=== PATIENT | male | born 1985 | race Caucasian/White ===

== ENCOUNTER 2017-04-15 10:27 | Inpatient (IN) | payer OTHER, MEDICAID ==
[2017-04-15] MEDS: SOD CHLORIDE 0.9% 1,000 ML IV ×3 (11:09→22:30)
[2017-04-15 11:30] LABS: ADD MAN DIFF? NO
[2017-04-15 11:32] LABS: BASOPHILS % 0.1 % (0.0-2.0); HEMATOCRIT 34.6 % (42.0-52.0); HEMOGLOBIN 11.9 g/dl (14.0-18.0); LYMPHOCYTES # 1.9 10^3/ul (0.8-2.9); LYMPHOCYTES % 9.1 % (15.0-51.0); MEAN CORPUSCULAR HEMOGLOBIN 31.6 pg (29.0-33.0); MEAN CORPUSCULAR HGB CONC 34.4 g/dl (32.0-37.0); MEAN CORPUSCULAR VOLUME 91.8 fl (82.0-101.0); MEAN PLATELET VOLUME 11.1 fl (7.4-10.4); MONOCYTE # 1.2 10^3/ul (0.3-0.9); MONOCYTES % 5.8 % (0.0-11.0); NEUTROPHIL # 17.9 10^3/ul (1.6-7.5); NEUTROPHILS % 84.4 % (39.0-77.0); PLATELET COUNT 196 10^3/UL (140-415); RED BLOOD COUNT 3.77 10^6/ul (4.70-6.10); RED CELL DISTRIBUTION WIDTH 12.4 % (11.5-14.5)
[2017-04-15 11:32] LABS: WHITE BLOOD COUNT 21.3 10^3/ul (4.8-10.8)
[2017-04-15 11:39] LABS: ADD UMIC YES; UR ASCORBIC ACID NEGATIVE (NEGATIVE); UR BILIRUBIN (Dip) NEGATIVE (NEGATIVE); UR BLOOD (Dip) NEGATIVE (NEGATIVE); UR CLARITY CLEAR (CLEAR); UR COLOR YELLOW (YELLOW); UR GLUCOSE (Dip) 3+ mg/dL (NEGATIVE); UR KETONES (Dip) NEGATIVE (NEGATIVE); UR LEUKOCYTE ESTERASE (Dip) NEGATIVE Leu/ul (NEGATIVE); UR NITRITE (Dip) NEGATIVE (NEGATIVE); UR RBC 4 /HPF (0-5); UR SPECIFIC GRAVITY (Dip) 1.018 (1.003-1.030); UR TOTAL PROTEIN (Dip) 2+ mg/dl (NEGATIVE); UR UROBILINOGEN (Dip) NEGATIVE (NEGATIVE); UR WBC 0 /HPF (0-5)
[2017-04-15] MEDS: INSULIN LISPRO 100 UNIT/ML VIAL SC (11:41)
[2017-04-15] MEDS: ONDANSETRON 4 MG INJ IV ×2 (11:47→13:49)
[2017-04-15] MEDS: HYDROmorphONE 1 MG/ML SYG IV ×3 (11:47→19:49)
[2017-04-15 11:58] LABS: INR 1.03; PARTIAL THROMBOPLASTIN TIME 35.4 Sec (25.0-35.0); PROTIME 13.6 Sec (11.9-14.9); PT RATIO 1.1
[2017-04-15 12:01] LABS: ALANINE AMINOTRANSFERASE 30 IU/L (13-69); ALBUMIN 4.7 g/dl (3.3-4.9); ALBUMIN/GLOBULIN RATIO 1.46; ALKALINE PHOSPHATASE 111 IU/L (42-121); ANION GAP 20 (8-16); ASPARTATE AMINO TRANSFERASE 20 IU/L (15-46); BILIRUBIN,INDIRECT 0.5 mg/dl (0-1.1); BILIRUBIN,TOTAL 0.5 mg/dl (0.2-1.3); BLOOD UREA NITROGEN 19 mg/dl (7-20); CALCIUM 9.7 mg/dl (8.4-10.2); CARBON DIOXIDE 26 mmol/L (21-31); CHLORIDE 94 mmol/L (97-110); CREATININE 0.94 mg/dl (0.61-1.24); GLUCOSE 354 mg/dl (70-220); POTASSIUM 4.5 mmol/L (3.5-5.1); SODIUM 135 mmol/L (135-144); TOTAL PROTEIN 7.9 g/dl (6.1-8.1)
[2017-04-15 12:02] LABS: LACTIC ACID 1.6 mmol/L (0.5-2.0)
[2017-04-15 12:02] LABS: AMPHETAMINE/METHAMPHETAMINE Negative (NEGATIVE); BARBITURATES Negative (NEGATIVE); BENZODIAZEPINES Negative (NEGATIVE); CANNABINOIDS Positive (NEGATIVE); COCAINE Negative (NEGATIVE); OPIATES Negative (NEGATIVE)
[2017-04-15 12:03] LABS: ETHANOL < 10.0 mg/dl
[2017-04-15] MEDS: SODIUM CHLORIDE 0.9% 1L BAG IV* (12:06)
[2017-04-15 12:08] LABS: Arterial Base Excess -0.9 mmol/L (-3.0-3); Arterial Blood Gas Oxygen Sat 70.2 mmHG (95.0-98.0); Arterial COHb 2.1 % (0.0-3.0); Arterial Fraction of Oxyhgb 68.6 % (93.0-99.0); Arterial HCO3 24.1 mmol/L (22.0-26.0); Arterial MetHb 0.2 % (0.0-1.5); Arterial pCO2 41.3 mmhg (35-45); MODE ROOM AIR; Sample Type Blood venous; Site VENOUS LINE
[2017-04-15 12:14] LABS: B-TYPE NATRIURETIC PEPTIDE 482 PG/ML (0-125)
[2017-04-15 12:26] LABS: TROPONIN-I < 0.012 ng/ml (0.00-0.12)
[2017-04-15] MEDS: CEFTRIAXONE 1 GM/50 ML (PMX) 50 ML IVPB (12:41)
[2017-04-15 13:00] LABS: AMYLASE 49 U/L (11-123)
[2017-04-15 13:00] LABS: LIPASE 38 U/L (23-300)
[2017-04-15] MEDS: AZITHROMYCIN 500MG/NS (PMX) 250 ML IV (13:48)
[2017-04-15] MEDS ORDERED: ACETAMINOPHEN 325 MG TAB PO ×2 (15:00→15:30)
[2017-04-15] MEDS ORDERED: ONDANSETRON 4 MG INJ IV (15:00)
[2017-04-15] MEDS ORDERED: METOCLOPRAMIDE 10 MG INJ IV (15:30)
[2017-04-15] MEDS ORDERED: GLUCOSE GEL 15 GRAM TUBE BUCCAL (15:30)
[2017-04-15] MEDS ORDERED: DEXTROSE 50% 50 ML SYRINGE IV ×2 (15:30)
[2017-04-15] MEDS ORDERED: GLUCOSE GEL 15 GRAM TUBE PO ×2 (15:30)
[2017-04-15] MEDS ORDERED: GLUCAGON 1 MG INJ IM (15:30)
[2017-04-15] MEDS ORDERED: NACL 0.9% 3 ML SYG IV (15:30)
[2017-04-15] MEDS ORDERED: MAGNESIUM HYDROXIDE 30ML CUP PO (15:30)
[2017-04-15] MEDS ORDERED: DOCUSATE SODIUM 100 MG CAP PO (15:30)
[2017-04-15 15:39] LABS: HEMOGLOBIN A1C 10.9 % (0-5.9)
[2017-04-15] MEDS: DOXYCYCLINE 100 MG in DEXTROSE 5% 250 ML IV (15:42)
[2017-04-15 16:42] LABS: IRON 11 ug/dl (35-150)
[2017-04-15 16:52] LABS: % IRON SATURATION 5 % SAT (22-52); TOTAL IRON BINDING CAPACITY 233 ug/dl (241-421)
[2017-04-15] MEDS: HYDROmorphONE 0.5 MG/0.5 ML SYG IV ×2 (17:12→22:10)
[2017-04-15] MEDS: INSULIN ASPART [NOVOLOG] 3 ML PEN SC (21:30)
[2017-04-15] MEDS: FAMOTIDINE 20 MG TAB PO (22:39)
[2017-04-15] MEDS: GABAPENTIN 100 MG CAP NGT (22:39)
[2017-04-16] MEDS: HYDROmorphONE 0.5 MG/0.5 ML SYG IV ×6 (02:24→20:59)
[2017-04-16] MEDS: SOD CHLORIDE 0.9% 1,000 ML IV (04:36)
[2017-04-16 05:30] LABS: ADD MAN DIFF? NO
[2017-04-16 05:33] LABS: BASOPHILS % 0.1 % (0.0-2.0); EOSINOPHILS % 0.1 % (0.0-7.0); HEMATOCRIT 29.3 % (42.0-52.0); HEMOGLOBIN 9.8 g/dl (14.0-18.0); LYMPHOCYTES % 12.9 % (15.0-51.0); MEAN CORPUSCULAR HEMOGLOBIN 30.7 pg (29.0-33.0); MEAN CORPUSCULAR HGB CONC 33.4 g/dl (32.0-37.0); MEAN CORPUSCULAR VOLUME 91.8 fl (82.0-101.0); MEAN PLATELET VOLUME 11.2 fl (7.4-10.4); MONOCYTE # 0.8 10^3/ul (0.3-0.9); MONOCYTES % 4.9 % (0.0-11.0); NEUTROPHIL # 12.7 10^3/ul (1.6-7.5); NEUTROPHILS % 81.6 % (39.0-77.0); PLATELET COUNT 164 10^3/UL (140-415); RED BLOOD COUNT 3.19 10^6/ul (4.70-6.10); RED CELL DISTRIBUTION WIDTH 12.2 % (11.5-14.5)
[2017-04-16 05:33] LABS: WHITE BLOOD COUNT 15.6 10^3/ul (4.8-10.8)
[2017-04-16 06:04] LABS: ALBUMIN 3.3 g/dl (3.3-4.9); ANION GAP 15 (8-16); BLOOD UREA NITROGEN 20 mg/dl (7-20); CALCIUM 8.2 mg/dl (8.4-10.2); CARBON DIOXIDE 23 mmol/L (21-31); CHLORIDE 100 mmol/L (97-110); CREATININE 0.71 mg/dl (0.61-1.24); GLUCOSE 174 mg/dl (70-220); MAGNESIUM 1.6 mg/dl (1.7-2.5); PHOSPHORUS 3.6 mg/dl (2.5-4.9); POTASSIUM 4.3 mmol/L (3.5-5.1); SODIUM 134 mmol/L (135-144)
[2017-04-16] MEDS: INSULIN ASPART [NOVOLOG] 3 ML PEN SC ×3 (07:05→17:58)
[2017-04-16] MEDS: INSULIN GLARGINE [LANtus] 3 ML PEN SC ×2 (08:16→21:14)
[2017-04-16] MEDS: GABAPENTIN 100 MG CAP NGT ×2 (08:29→13:12)
[2017-04-16] MEDS: FAMOTIDINE 20 MG TAB PO ×2 (08:29→21:06)
[2017-04-16] MEDS: CEFTRIAXONE 1 GM/50 ML (PMX) 50 ML IVPB (12:48)
[2017-04-16] MEDS: AZITHROMYCIN 500MG/NS (PMX) 250 ML IVPB (14:26)
[2017-04-16] MEDS: MAGNESIUM SULFATE 2 GM/50 ML 50 ML IVPB (15:23)
[2017-04-16] MEDS: ALBUTEROL/IPRATROPIUM (NEB) 3 ML AMP HHN ×2 (15:41→20:08)
[2017-04-16] MEDS: LORAZEPAM 2 MG INJ IV (21:00)
[2017-04-16] MEDS: GABAPENTIN 300 MG CAP PO (21:07)
[2017-04-17] MEDS: HYDROmorphONE 0.5 MG/0.5 ML SYG IV ×3 (03:00→12:30)
[2017-04-17 05:49] LABS: ADD MAN DIFF? NO
[2017-04-17 06:08] LABS: BASOPHILS % 0.1 % (0.0-2.0); EOSINOPHILS % 0.5 % (0.0-7.0); HEMATOCRIT 26.1 % (42.0-52.0); HEMOGLOBIN 8.9 g/dl (14.0-18.0); LYMPHOCYTES % 26.6 % (15.0-51.0); MEAN CORPUSCULAR HEMOGLOBIN 31.2 pg (29.0-33.0); MEAN CORPUSCULAR HGB CONC 34.1 g/dl (32.0-37.0); MEAN CORPUSCULAR VOLUME 91.6 fl (82.0-101.0); MEAN PLATELET VOLUME 10.6 fl (7.4-10.4); MONOCYTE # 0.5 10^3/ul (0.3-0.9); MONOCYTES % 6.1 % (0.0-11.0); NEUTROPHILS % 66.3 % (39.0-77.0); PLATELET COUNT 180 10^3/UL (140-415); RED BLOOD COUNT 2.85 10^6/ul (4.70-6.10); RED CELL DISTRIBUTION WIDTH 12.1 % (11.5-14.5)
[2017-04-17 06:08] LABS: WHITE BLOOD COUNT 7.6 10^3/ul (4.8-10.8)
[2017-04-17 06:50] LABS: ALBUMIN 2.9 g/dl (3.3-4.9); ANION GAP 9 (8-16); BLOOD UREA NITROGEN 19 mg/dl (7-20); CALCIUM 8.5 mg/dl (8.4-10.2); CARBON DIOXIDE 27 mmol/L (21-31); CHLORIDE 102 mmol/L (97-110); CREATININE 0.75 mg/dl (0.61-1.24); GLUCOSE 172 mg/dl (70-220); MAGNESIUM 2.3 mg/dl (1.7-2.5); PHOSPHORUS 3.3 mg/dl (2.5-4.9); POTASSIUM 3.8 mmol/L (3.5-5.1); SODIUM 134 mmol/L (135-144)
[2017-04-17] MEDS: INSULIN ASPART [NOVOLOG] 3 ML PEN SC ×4 (07:05→22:45)
[2017-04-17] MEDS: ALBUTEROL/IPRATROPIUM (NEB) 3 ML AMP HHN ×3 (08:40→19:27)
[2017-04-17] MEDS: FAMOTIDINE 20 MG TAB PO ×2 (09:55→21:05)
[2017-04-17] MEDS: GABAPENTIN 300 MG CAP PO ×3 (09:55→21:05)
[2017-04-17] MEDS ORDERED: HYDROmorphONE 1 MG/ML SYG ×3 (10:05→22:00)
[2017-04-17] MEDS: INFLUENZA VIRUS VACCINE 0.5 ML SYG IM* (12:24)
[2017-04-17] MEDS: CEFTRIAXONE 1 GM/50 ML (PMX) 50 ML IVPB (12:25)
[2017-04-17] MEDS: AZITHROMYCIN 500MG/NS (PMX) 250 ML IVPB (14:35)
[2017-04-17] MEDS: HYDROmorphONE 2 MG TAB PO (17:12)
[2017-04-17] MEDS: INSULIN GLARGINE [LANtus] 3 ML PEN SC (21:00)
[2017-04-17] MEDS: LORAZEPAM 0.5 MG TAB PO (22:03)
[2017-04-17] MEDS ORDERED: morphine 2 MG INJ IV (22:30)
[2017-04-17] MEDS: HYDROmorphONE 2 MG/ML SYG IV (23:00)
[2017-04-18] MEDS: HYDROmorphONE 2 MG/ML SYG IV ×4 (00:32→14:23)
[2017-04-18 05:02] LABS: ADD MAN DIFF? NO
[2017-04-18 05:05] LABS: BASOPHILS % 0.3 % (0.0-2.0); EOSINOPHILS # 0.1 10^3/ul (0.0-0.5); EOSINOPHILS % 1.3 % (0.0-7.0); HEMATOCRIT 30.3 % (42.0-52.0); HEMOGLOBIN 9.9 g/dl (14.0-18.0); LYMPHOCYTES # 1.6 10^3/ul (0.8-2.9); LYMPHOCYTES % 25.5 % (15.0-51.0); MEAN CORPUSCULAR HEMOGLOBIN 30.7 pg (29.0-33.0); MEAN CORPUSCULAR HGB CONC 32.7 g/dl (32.0-37.0); MEAN CORPUSCULAR VOLUME 94.1 fl (82.0-101.0); MEAN PLATELET VOLUME 10.2 fl (7.4-10.4); MONOCYTE # 0.4 10^3/ul (0.3-0.9); MONOCYTES % 6.1 % (0.0-11.0); NEUTROPHIL # 4.2 10^3/ul (1.6-7.5); NEUTROPHILS % 66.6 % (39.0-77.0); PLATELET COUNT 192 10^3/UL (140-415); RED BLOOD COUNT 3.22 10^6/ul (4.70-6.10); RED CELL DISTRIBUTION WIDTH 11.9 % (11.5-14.5)
[2017-04-18 05:05] LABS: WHITE BLOOD COUNT 6.4 10^3/ul (4.8-10.8)
[2017-04-18 05:25] LABS: ALBUMIN 3.4 g/dl (3.3-4.9); ANION GAP 12 (8-16); BLOOD UREA NITROGEN 12 mg/dl (7-20); CARBON DIOXIDE 28 mmol/L (21-31); CHLORIDE 100 mmol/L (97-110); CREATININE 0.75 mg/dl (0.61-1.24); GLUCOSE 206 mg/dl (70-220); MAGNESIUM 1.9 mg/dl (1.7-2.5); PHOSPHORUS 3.2 mg/dl (2.5-4.9); POTASSIUM 4.2 mmol/L (3.5-5.1); SODIUM 136 mmol/L (135-144)
[2017-04-18] MEDS: ALBUTEROL 0.083% (NEB) 2.5 MG/3 ML AMP HHN (08:46)
[2017-04-18] MEDS: ALBUTEROL/IPRATROPIUM (NEB) 3 ML AMP HHN ×2 (08:51→13:53)
[2017-04-18] MEDS: INSULIN ASPART [NOVOLOG] 3 ML PEN SC (09:17)
[2017-04-18] MEDS: GABAPENTIN 300 MG CAP PO ×2 (11:02→14:23)
[2017-04-18] MEDS: FAMOTIDINE 20 MG TAB PO (11:02)
[2017-04-18] MEDS: LEVOFLOXACIN 750MG/D5W (PMX) 150 ML IVPB (12:58)
== END 2017-04-18 18:45 | disposition home or self-care (01) | DRG 871 ==
LOC: MS3 04-18 00:10 → E/R 10:27 → MS3 20:46
DX: A41.9 Sepsis, unspecified organism (principal); J18.9 Pneumonia, unspecified organism; Z94.84 Stem cells transplant status; K31.84 Gastroparesis; E11.43 Type 2 diabetes mellitus with diabetic autonomic (poly)neuropathy; C91.01 Acute lymphoblastic leukemia, in remission; N39.0 Urinary tract infection, site not specified; B95.7 Other staphylococcus as the cause of diseases classified elsewhere; D64.9 Anemia, unspecified; Z89.422 Acquired absence of other left toe(s)
CPT/HCPCS: 36415; 36600; 71045; 80053; 80069; 80306; 80307; 81001; 82150; 82803; 82962; 83036; 83540; 83605; 83690; 83735; 83880; 84484; 85025; 85610; 85730; 87040; 87086; 87400; 90686; 93005; 94640; 94664; 96361; 96365; 96366; 96368; 96372; 96375; 96376; 99285-25

== ENCOUNTER 2017-06-14 10:49 | Emergency (ER) | payer OTHER ==
[2017-06-14] MEDS: IPRATROPIUM (NEB) 0.5 MG/2.5 ML AMP NEB (11:56)
[2017-06-14] MEDS: ALBUTEROL 0.083% (NEB) 2.5 MG/3 ML AMP NEB (11:56)
[2017-06-14 12:11] LABS: ADD MAN DIFF? NO
[2017-06-14] MEDS: SODIUM CHLORIDE 0.9% 1L BAG IV* (12:11)
[2017-06-14 12:20] LABS: WHITE BLOOD COUNT 13.2 10^3/ul (4.8-10.8)
[2017-06-14 12:20] LABS: BASOPHILS % 0.2 % (0.0-2.0); EOSINOPHILS # 0.3 10^3/ul (0.0-0.5); EOSINOPHILS % 1.9 % (0.0-7.0); HEMATOCRIT 29.1 % (42.0-52.0); HEMOGLOBIN 10.1 g/dl (14.0-18.0); LYMPHOCYTES # 1.8 10^3/ul (0.8-2.9); LYMPHOCYTES % 13.9 % (15.0-51.0); MEAN CORPUSCULAR HGB CONC 34.7 g/dl (32.0-37.0); MEAN CORPUSCULAR VOLUME 92.1 fl (82.0-101.0); MONOCYTE # 0.6 10^3/ul (0.3-0.9); MONOCYTES % 4.7 % (0.0-11.0); NEUTROPHIL # 10.4 10^3/ul (1.6-7.5); NEUTROPHILS % 78.8 % (39.0-77.0); PLATELET COUNT 158 10^3/UL (140-415); RED BLOOD COUNT 3.16 10^6/ul (4.70-6.10); RED CELL DISTRIBUTION WIDTH 12.7 % (11.5-14.5)
[2017-06-14 12:54] LABS: ANION GAP 17 (8-16); BLOOD UREA NITROGEN 30 mg/dl (7-20); CALCIUM 9.2 mg/dl (8.4-10.2); CARBON DIOXIDE 25 mmol/L (21-31); CHLORIDE 103 mmol/L (97-110); GLUCOSE 298 mg/dl (70-220); POTASSIUM 5.2 mmol/L (3.5-5.1); SODIUM 140 mmol/L (135-144)
[2017-06-14] MEDS: KETOROLAC 15 MG INJ IV (13:20)
[2017-06-14] MEDS ORDERED: HYDROCODONE/APAP (10/325) TAB PO (14:30)
== END 2017-06-14 14:15 | disposition home or self-care (01) ==
LOC: E/R 10:49
DX: J22 Unspecified acute lower respiratory infection (principal); E11.9 Type 2 diabetes mellitus without complications; R05 Cough; Z94.84 Stem cells transplant status; Z85.6 Personal history of leukemia; Z79.4 Long term (current) use of insulin
CPT/HCPCS: 36415; 71045; 80048; 83605; 85025; 87040; 87400; 94664; 99284-25

== ENCOUNTER 2017-08-15 08:33 | Inpatient (IN) | payer OTHER ==
[2017-08-15] MEDS: ONDANSETRON 4 MG INJ IV ×3 (09:13→15:15)
[2017-08-15] MEDS: HYDROmorphONE 1 MG/5 ML IV SYRINGE IV ×3 (09:13→14:38)
[2017-08-15] MEDS: SOD CHLORIDE 0.9% 1,000 ML IV ×2 (09:13→14:39)
[2017-08-15 09:17] LABS: ADD MAN DIFF? NO
[2017-08-15 09:21] LABS: WHITE BLOOD COUNT 17.4 10^3/ul (4.8-10.8)
[2017-08-15 09:21] LABS: BASOPHILS % 0.2 % (0.0-2.0); EOSINOPHILS # 0.1 10^3/ul (0.0-0.5); EOSINOPHILS % 0.4 % (0.0-7.0); HEMATOCRIT 33.9 % (42.0-52.0); HEMOGLOBIN 11.2 g/dl (14.0-18.0); LYMPHOCYTES % 17.5 % (15.0-51.0); MEAN CORPUSCULAR HEMOGLOBIN 31.1 pg (29.0-33.0); MEAN CORPUSCULAR VOLUME 94.2 fl (82.0-101.0); MEAN PLATELET VOLUME 10.2 fl (7.4-10.4); MONOCYTE # 0.7 10^3/ul (0.3-0.9); MONOCYTES % 3.9 % (0.0-11.0); NEUTROPHIL # 13.5 10^3/ul (1.6-7.5); NEUTROPHILS % 77.5 % (39.0-77.0); PLATELET COUNT 399 10^3/UL (140-415); RED CELL DISTRIBUTION WIDTH 11.7 % (11.5-14.5)
[2017-08-15 09:48] LABS: ALANINE AMINOTRANSFERASE 14 IU/L (13-69); ALBUMIN 4.2 g/dl (3.3-4.9); ALBUMIN/GLOBULIN RATIO 1.13; ALKALINE PHOSPHATASE 107 IU/L (42-121); ANION GAP 22 (8-16); ASPARTATE AMINO TRANSFERASE 11 IU/L (15-46); BILIRUBIN,INDIRECT 0.3 mg/dl (0-1.1); BILIRUBIN,TOTAL 0.3 mg/dl (0.2-1.3); BLOOD UREA NITROGEN 18 mg/dl (7-20); CALCIUM 9.3 mg/dl (8.4-10.2); CARBON DIOXIDE 26 mmol/L (21-31); CHLORIDE 92 mmol/L (97-110); CREATININE 0.87 mg/dl (0.61-1.24); LIPASE 56 U/L (23-300); POTASSIUM 4.6 mmol/L (3.5-5.1); SODIUM 135 mmol/L (135-144); TOTAL PROTEIN 7.9 g/dl (6.1-8.1)
[2017-08-15 09:52] LABS: GLUCOSE 482 mg/dl (70-220)
[2017-08-15 10:29] LABS: ACETONE NEGATIVE (NEGATIVE)
[2017-08-15] MEDS ORDERED: INSULIN LISPRO 100 UNIT/ML VIAL SC (10:30)
[2017-08-15] MEDS ORDERED: DEXTROSE 50% 50 ML SYRINGE IV ×2 (10:30)
[2017-08-15] MEDS ORDERED: GLUCOSE GEL 15 GRAM TUBE BUCCAL (10:30)
[2017-08-15] MEDS ORDERED: GLUCAGON 1 MG INJ IM (10:30)
[2017-08-15] MEDS ORDERED: GLUCOSE GEL 15 GRAM TUBE PO ×2 (10:30)
[2017-08-15] MEDS: INSULIN LISPRO 100 UNIT/ML VIAL SC (11:26)
[2017-08-15] MEDS: SODIUM CHLORIDE 0.9% 1L BAG IV* (12:00)
[2017-08-15 12:43] LABS: ADD UMIC YES; UR ASCORBIC ACID NEGATIVE (NEGATIVE); UR BILIRUBIN (Dip) NEGATIVE (NEGATIVE); UR BLOOD (Dip) NEGATIVE (NEGATIVE); UR CLARITY CLEAR (CLEAR); UR COLOR STRAW (YELLOW); UR GLUCOSE (Dip) 3+ mg/dL (NEGATIVE); UR KETONES (Dip) 1+ mg/dL (NEGATIVE); UR LEUKOCYTE ESTERASE (Dip) NEGATIVE Leu/ul (NEGATIVE); UR NITRITE (Dip) NEGATIVE (NEGATIVE); UR RBC 1 /HPF (0-5); UR SPECIFIC GRAVITY (Dip) 1.024 (1.003-1.030); UR TOTAL PROTEIN (Dip) 1+ mg/dl (NEGATIVE); UR UROBILINOGEN (Dip) NEGATIVE (NEGATIVE); UR WBC 0 /HPF (0-5)
[2017-08-15] MEDS: CEFEPIME 2GM/50 ML (PMX) 50 ML IVPB (13:00)
[2017-08-15] MEDS ORDERED: ACETAMINOPHEN 325 MG TAB PO (13:00)
[2017-08-15] MEDS ORDERED: ONDANSETRON 4 MG INJ IV (13:00)
[2017-08-15 13:27] LABS: LACTIC ACID 1.5 mmol/L (0.5-2.0)
[2017-08-15] MEDS: VANCOMYCIN 1 GM (PMX) 250 ML IVPB (14:43)
[2017-08-15] MEDS ORDERED: NACL 0.9% 3 ML SYG IV (15:00)
[2017-08-15 16:37] LABS: LACTIC ACID 1.4 mmol/L (0.5-2.0)
[2017-08-15] MEDS: INSULIN ASPART [NOVOLOG] 3 ML PEN SC ×3 (17:28→21:00)
[2017-08-15] MEDS: HYDROmorphONE 0.5 MG/0.5 ML SYG IV (17:30)
[2017-08-15 19:43] LABS: LACTIC ACID 1.6 mmol/L (0.5-2.0)
[2017-08-15] MEDS: INSULIN GLARGINE [LANtus] 3 ML PEN SC (21:46)
[2017-08-15] MEDS: HYDROCODONE/APAP (5/325) TAB PO (22:50)
[2017-08-16] MEDS: HYDROmorphONE 2 MG TAB PO (00:33)
[2017-08-16] MEDS: LOPERAMIDE 2 MG CAP PO (01:18)
[2017-08-16] MEDS: ACCU-CHEK XX (02:00)
[2017-08-16 07:43] LABS: ADD MAN DIFF? NO
[2017-08-16 07:47] LABS: WHITE BLOOD COUNT 14.5 10^3/ul (4.8-10.8)
[2017-08-16 07:47] LABS: BASOPHILS % 0.2 % (0.0-2.0); EOSINOPHILS # 0.1 10^3/ul (0.0-0.5); EOSINOPHILS % 0.9 % (0.0-7.0); HEMOGLOBIN 9.4 g/dl (14.0-18.0); LYMPHOCYTES # 2.4 10^3/ul (0.8-2.9); LYMPHOCYTES % 16.7 % (15.0-51.0); MEAN CORPUSCULAR HEMOGLOBIN 31.4 pg (29.0-33.0); MEAN CORPUSCULAR HGB CONC 33.6 g/dl (32.0-37.0); MEAN CORPUSCULAR VOLUME 93.6 fl (82.0-101.0); MEAN PLATELET VOLUME 9.7 fl (7.4-10.4); MONOCYTE # 0.7 10^3/ul (0.3-0.9); MONOCYTES % 4.7 % (0.0-11.0); NEUTROPHIL # 11.2 10^3/ul (1.6-7.5); NEUTROPHILS % 77.1 % (39.0-77.0); PLATELET COUNT 359 10^3/UL (140-415); RED BLOOD COUNT 2.99 10^6/ul (4.70-6.10); RED CELL DISTRIBUTION WIDTH 11.6 % (11.5-14.5)
[2017-08-16 08:11] LABS: ALANINE AMINOTRANSFERASE 13 IU/L (13-69); ALBUMIN 2.7 g/dl (3.3-4.9); ALBUMIN/GLOBULIN RATIO 0.93; ALKALINE PHOSPHATASE 54 IU/L (42-121); ANION GAP 9 (8-16); ASPARTATE AMINO TRANSFERASE 13 IU/L (15-46); BILIRUBIN,INDIRECT 0.1 mg/dl (0-1.1); BILIRUBIN,TOTAL 0.1 mg/dl (0.2-1.3); BLOOD UREA NITROGEN 16 mg/dl (7-20); CALCIUM 8.3 mg/dl (8.4-10.2); CARBON DIOXIDE 30 mmol/L (21-31); CHLORIDE 100 mmol/L (97-110); GLUCOSE 136 mg/dl (70-220); POTASSIUM 3.7 mmol/L (3.5-5.1); SODIUM 135 mmol/L (135-144); TOTAL PROTEIN 5.6 g/dl (6.1-8.1)
[2017-08-16] MEDS: INSULIN ASPART [NOVOLOG] 3 ML PEN SC ×7 (08:42→20:41)
[2017-08-16] MEDS: ENOXAPARIN 40 MG/0.4 ML SYG SC (08:42)
[2017-08-16] MEDS ORDERED: HYDROCODONE/APAP (5/325) TAB PO (15:00)
[2017-08-16] MEDS: HYDROmorphONE 0.5 MG/0.5 ML SYG IV ×3 (16:12→22:54)
[2017-08-16] MEDS: INSULIN GLARGINE [LANtus] 3 ML PEN SC (20:00)
[2017-08-16] MEDS: ONDANSETRON 4 MG INJ IV ×2 (20:11→23:45)
[2017-08-16] MEDS: METOCLOPRAMIDE 10 MG INJ IV (23:03)
[2017-08-16] MEDS: PANTOPRAZOLE 40 MG INJ IV (23:03)
[2017-08-16] MEDS: SOD CHLORIDE 0.9% 1,000 ML IV (23:30)
[2017-08-16] MEDS: LIDOCAINE/MYLANTA 40 ML BTL PO (23:30)
[2017-08-17] MEDS: HYDROmorphONE 0.5 MG/0.5 ML SYG IV
[2017-08-17] MEDS: HYDROmorphONE 2 MG/ML SYG IV ×4 (01:30→20:10)
[2017-08-17] MEDS: ACCU-CHEK XX (02:00)
[2017-08-17 03:06] LABS: ADD MAN DIFF? NO
[2017-08-17 03:07] LABS: WHITE BLOOD COUNT 10.9 10^3/ul (4.8-10.8)
[2017-08-17 03:07] LABS: BASOPHILS % 0.2 % (0.0-2.0); EOSINOPHILS # 0.1 10^3/ul (0.0-0.5); EOSINOPHILS % 0.6 % (0.0-7.0); HEMATOCRIT 28.9 % (42.0-52.0); HEMOGLOBIN 9.5 g/dl (14.0-18.0); LYMPHOCYTES # 2.1 10^3/ul (0.8-2.9); LYMPHOCYTES % 19.4 % (15.0-51.0); MEAN CORPUSCULAR HEMOGLOBIN 30.7 pg (29.0-33.0); MEAN CORPUSCULAR HGB CONC 32.9 g/dl (32.0-37.0); MEAN CORPUSCULAR VOLUME 93.5 fl (82.0-101.0); MEAN PLATELET VOLUME 9.1 fl (7.4-10.4); MONOCYTE # 0.5 10^3/ul (0.3-0.9); MONOCYTES % 4.7 % (0.0-11.0); NEUTROPHIL # 8.2 10^3/ul (1.6-7.5); NEUTROPHILS % 74.9 % (39.0-77.0); PLATELET COUNT 384 10^3/UL (140-415); RED BLOOD COUNT 3.09 10^6/ul (4.70-6.10); RED CELL DISTRIBUTION WIDTH 11.5 % (11.5-14.5)
[2017-08-17 03:32] LABS: LACTIC ACID 0.6 mmol/L (0.5-2.0)
[2017-08-17 03:35] LABS: ANION GAP 14 (8-16); BLOOD UREA NITROGEN 13 mg/dl (7-20); CALCIUM 8.2 mg/dl (8.4-10.2); CARBON DIOXIDE 26 mmol/L (21-31); CHLORIDE 101 mmol/L (97-110); CREATININE 0.64 mg/dl (0.61-1.24); GLUCOSE 152 mg/dl (70-220); POTASSIUM 3.9 mmol/L (3.5-5.1); SODIUM 137 mmol/L (135-144)
[2017-08-17] MEDS: PANTOPRAZOLE 40 MG INJ IV ×2 (06:32→17:23)
[2017-08-17] MEDS: METOCLOPRAMIDE 10 MG INJ IV ×3 (06:32→17:23)
[2017-08-17] MEDS: INSULIN ASPART [NOVOLOG] 3 ML PEN SC ×7 (08:00→21:00)
[2017-08-17] MEDS: ENOXAPARIN 40 MG/0.4 ML SYG SC (09:10)
[2017-08-17] MEDS: SOD CHLORIDE 0.9% 1,000 ML IV (13:28)
[2017-08-17] MEDS: LEVOFLOXACIN 500MG/D5W (PMX) 100 ML IVPB (15:05)
[2017-08-17] MEDS: metroNIDAZOLE 500 MG/NS (PMX) 100 ML IVPB ×2 (16:12→21:57)
[2017-08-17] MEDS: INSULIN GLARGINE [LANtus] 3 ML PEN SC (20:12)
[2017-08-18] MEDS: METOCLOPRAMIDE 10 MG INJ IV ×5 (00:40→23:54)
[2017-08-18] MEDS: HYDROmorphONE 2 MG/ML SYG IV ×6 (00:40→23:11)
[2017-08-18] MEDS: ACCU-CHEK XX (02:00)
[2017-08-18] MEDS: PANTOPRAZOLE 40 MG INJ IV ×2 (05:33→17:33)
[2017-08-18] MEDS: metroNIDAZOLE 500 MG/NS (PMX) 100 ML IVPB ×3 (05:33→22:04)
[2017-08-18 06:14] LABS: ADD MAN DIFF? NO
[2017-08-18 06:22] LABS: BASOPHILS % 0.1 % (0.0-2.0); EOSINOPHILS # 0.1 10^3/ul (0.0-0.5); EOSINOPHILS % 0.9 % (0.0-7.0); HEMATOCRIT 29.5 % (42.0-52.0); HEMOGLOBIN 9.7 g/dl (14.0-18.0); LYMPHOCYTES # 2.1 10^3/ul (0.8-2.9); LYMPHOCYTES % 21.4 % (15.0-51.0); MEAN CORPUSCULAR HEMOGLOBIN 30.9 pg (29.0-33.0); MEAN CORPUSCULAR HGB CONC 32.9 g/dl (32.0-37.0); MEAN CORPUSCULAR VOLUME 93.9 fl (82.0-101.0); MEAN PLATELET VOLUME 9.3 fl (7.4-10.4); MONOCYTE # 0.6 10^3/ul (0.3-0.9); MONOCYTES % 5.8 % (0.0-11.0); NEUTROPHIL # 7.1 10^3/ul (1.6-7.5); NEUTROPHILS % 71.5 % (39.0-77.0); PLATELET COUNT 426 10^3/UL (140-415); RED BLOOD COUNT 3.14 10^6/ul (4.70-6.10); RED CELL DISTRIBUTION WIDTH 11.6 % (11.5-14.5)
[2017-08-18] MEDS: SOD CHLORIDE 0.9% 1,000 ML IV ×3 (06:37→23:54)
[2017-08-18 06:57] LABS: ANION GAP 9 (8-16); BLOOD UREA NITROGEN 11 mg/dl (7-20); CALCIUM 8.5 mg/dl (8.4-10.2); CARBON DIOXIDE 30 mmol/L (21-31); CHLORIDE 102 mmol/L (97-110); CREATININE 0.78 mg/dl (0.61-1.24); GLUCOSE 183 mg/dl (70-220); SODIUM 137 mmol/L (135-144)
[2017-08-18 06:58] LABS: MAGNESIUM 1.8 mg/dl (1.7-2.5)
[2017-08-18] MEDS: INSULIN ASPART [NOVOLOG] 3 ML PEN SC ×7 (08:23→21:00)
[2017-08-18] MEDS: ENOXAPARIN 40 MG/0.4 ML SYG SC (08:24)
[2017-08-18] MEDS: LEVOFLOXACIN 500MG/D5W (PMX) 100 ML IVPB (14:39)
[2017-08-18] MEDS: INSULIN GLARGINE [LANtus] 3 ML PEN SC (20:00)
[2017-08-18] MEDS: ONDANSETRON 4 MG INJ IV (21:00)
[2017-08-19] MEDS: ACCU-CHEK XX (02:00)
[2017-08-19] MEDS: ONDANSETRON 4 MG INJ IV ×3 (05:11→21:00)
[2017-08-19] MEDS: HYDROmorphONE 2 MG/ML SYG IV ×4 (05:11→21:00)
[2017-08-19] MEDS: PANTOPRAZOLE 40 MG INJ IV ×2 (05:48→17:37)
[2017-08-19] MEDS: METOCLOPRAMIDE 10 MG INJ IV ×3 (05:48→17:37)
[2017-08-19] MEDS: metroNIDAZOLE 500 MG/NS (PMX) 100 ML IVPB ×3 (05:48→22:01)
[2017-08-19] MEDS: INSULIN ASPART [NOVOLOG] 3 ML PEN SC ×7 (07:35→21:00)
[2017-08-19] MEDS: ENOXAPARIN 40 MG/0.4 ML SYG SC (08:32)
[2017-08-19] MEDS: LEVOFLOXACIN 500MG/D5W (PMX) 100 ML IVPB (15:07)
[2017-08-19] MEDS: SOD CHLORIDE 0.9% 1,000 ML IV ×2 (17:28→23:00)
[2017-08-19] MEDS: INSULIN GLARGINE [LANtus] 3 ML PEN SC (20:08)
[2017-08-20] MEDS: METOCLOPRAMIDE 10 MG INJ IV ×4 (00:09→17:37)
[2017-08-20] MEDS: HYDROmorphONE 2 MG/ML SYG IV ×5 (01:17→21:28)
[2017-08-20] MEDS: ACCU-CHEK XX (02:00)
[2017-08-20] MEDS: PANTOPRAZOLE 40 MG INJ IV ×2 (05:28→17:37)
[2017-08-20] MEDS: metroNIDAZOLE 500 MG/NS (PMX) 100 ML IVPB ×3 (05:28→21:28)
[2017-08-20] MEDS: INSULIN ASPART [NOVOLOG] 3 ML PEN SC ×7 (08:00→21:00)
[2017-08-20] MEDS: ENOXAPARIN 40 MG/0.4 ML SYG SC (09:31)
[2017-08-20] MEDS: ONDANSETRON 4 MG INJ IV (09:33)
[2017-08-20] MEDS: SOD CHLORIDE 0.9% 1,000 ML IV (12:27)
[2017-08-20] MEDS: IOHEXOL 300MG/ML 150 ML BTL (12:46)
[2017-08-20] MEDS: SOD CHLORIDE 0.9% 100 ML (12:46)
[2017-08-20] MEDS: BARIUM SULF 2% 450 ML BTL (BERRY SMOOTHIE) PO (12:52)
[2017-08-20] MEDS: LEVOFLOXACIN 500MG/D5W (PMX) 100 ML IVPB (13:25)
[2017-08-20] MEDS: SOD CHLORIDE 0.45% 1,000 ML IV (17:37)
[2017-08-20] MEDS: INSULIN GLARGINE [LANtus] 3 ML PEN SC (21:56)
[2017-08-21] MEDS: METOCLOPRAMIDE 10 MG INJ IV ×5 (01:55→23:48)
[2017-08-21] MEDS: ACCU-CHEK XX (02:00)
[2017-08-21] MEDS: HYDROmorphONE 2 MG/ML SYG IV ×3 (02:00→20:57)
[2017-08-21] MEDS: PANTOPRAZOLE 40 MG INJ IV ×2 (06:54→17:02)
[2017-08-21] MEDS: metroNIDAZOLE 500 MG/NS (PMX) 100 ML IVPB (06:55)
[2017-08-21] MEDS: INSULIN ASPART [NOVOLOG] 3 ML PEN SC ×7 (08:00→21:00)
[2017-08-21] MEDS: SOD CHLORIDE 0.45% 1,000 ML IV (09:17)
[2017-08-21] MEDS: ENOXAPARIN 40 MG/0.4 ML SYG SC (09:18)
[2017-08-21] MEDS: HYDROmorphONE 0.5 MG/0.5 ML SYG IV ×2 (12:22→17:02)
[2017-08-21] MEDS: metroNIDAZOLE 500 MG TAB PO ×2 (13:57→21:53)
[2017-08-21] MEDS: LEVOFLOXACIN 500 MG TAB PO (13:58)
[2017-08-21 14:49] LABS: ADD MAN DIFF? NO
[2017-08-21 14:51] LABS: BASOPHILS % 0.2 % (0.0-2.0); EOSINOPHILS # 0.1 10^3/ul (0.0-0.5); EOSINOPHILS % 0.9 % (0.0-7.0); HEMATOCRIT 31.8 % (42.0-52.0); HEMOGLOBIN 10.2 g/dl (14.0-18.0); LYMPHOCYTES # 1.9 10^3/ul (0.8-2.9); LYMPHOCYTES % 20.8 % (15.0-51.0); MEAN CORPUSCULAR HEMOGLOBIN 30.3 pg (29.0-33.0); MEAN CORPUSCULAR HGB CONC 32.1 g/dl (32.0-37.0); MEAN CORPUSCULAR VOLUME 94.4 fl (82.0-101.0); MEAN PLATELET VOLUME 9.2 fl (7.4-10.4); MONOCYTE # 0.4 10^3/ul (0.3-0.9); MONOCYTES % 3.8 % (0.0-11.0); NEUTROPHIL # 6.8 10^3/ul (1.6-7.5); PLATELET COUNT 448 10^3/UL (140-415); RED BLOOD COUNT 3.37 10^6/ul (4.70-6.10)
[2017-08-21 14:51] LABS: WHITE BLOOD COUNT 9.2 10^3/ul (4.8-10.8)
[2017-08-21 15:22] LABS: ALBUMIN 3.2 g/dl (3.3-4.9); ANION GAP 9 (8-16); BLOOD UREA NITROGEN 6 mg/dl (7-20); CALCIUM 9.2 mg/dl (8.4-10.2); CARBON DIOXIDE 35 mmol/L (21-31); CHLORIDE 100 mmol/L (97-110); GLUCOSE 129 mg/dl (70-220); PHOSPHORUS 3.2 mg/dl (2.5-4.9); POTASSIUM 3.8 mmol/L (3.5-5.1); SODIUM 140 mmol/L (135-144)
[2017-08-21] MEDS: INSULIN GLARGINE [LANtus] 3 ML PEN SC ×2 (20:00)
[2017-08-22] MEDS: HYDROmorphONE 2 MG/ML SYG IV ×3 (00:57→09:48)
[2017-08-22] MEDS: ACCU-CHEK XX (01:21)
[2017-08-22] MEDS: PANTOPRAZOLE 40 MG INJ IV (05:28)
[2017-08-22] MEDS: LEVOFLOXACIN 500 MG TAB PO (05:28)
[2017-08-22] MEDS: metroNIDAZOLE 500 MG TAB PO ×2 (05:28→12:26)
[2017-08-22] MEDS: METOCLOPRAMIDE 10 MG INJ IV ×2 (05:28→12:25)
[2017-08-22 06:15] LABS: ADD MAN DIFF? NO
[2017-08-22 06:27] LABS: BASOPHILS % 0.3 % (0.0-2.0); EOSINOPHILS # 0.1 10^3/ul (0.0-0.5); EOSINOPHILS % 1.3 % (0.0-7.0); HEMATOCRIT 30.1 % (42.0-52.0); HEMOGLOBIN 9.7 g/dl (14.0-18.0); LYMPHOCYTES # 2.3 10^3/ul (0.8-2.9); LYMPHOCYTES % 33.4 % (15.0-51.0); MEAN CORPUSCULAR HEMOGLOBIN 30.6 pg (29.0-33.0); MEAN CORPUSCULAR HGB CONC 32.2 g/dl (32.0-37.0); MEAN PLATELET VOLUME 9.4 fl (7.4-10.4); MONOCYTE # 0.5 10^3/ul (0.3-0.9); MONOCYTES % 7.6 % (0.0-11.0); NEUTROPHILS % 57.1 % (39.0-77.0); PLATELET COUNT 404 10^3/UL (140-415); RED BLOOD COUNT 3.17 10^6/ul (4.70-6.10); RED CELL DISTRIBUTION WIDTH 12.1 % (11.5-14.5)
[2017-08-22 06:46] LABS: ANION GAP 11 (8-16); BLOOD UREA NITROGEN 7 mg/dl (7-20); CALCIUM 8.6 mg/dl (8.4-10.2); CARBON DIOXIDE 32 mmol/L (21-31); CHLORIDE 100 mmol/L (97-110); CREATININE 0.74 mg/dl (0.61-1.24); GLUCOSE 195 mg/dl (70-220); MAGNESIUM 1.5 mg/dl (1.7-2.5); PHOSPHORUS 3.5 mg/dl (2.5-4.9); POTASSIUM 4.3 mmol/L (3.5-5.1); SODIUM 139 mmol/L (135-144)
[2017-08-22] MEDS: INSULIN ASPART [NOVOLOG] 3 ML PEN SC ×4 (07:35→12:32)
[2017-08-22] MEDS: ENOXAPARIN 40 MG/0.4 ML SYG SC (09:51)
[2017-08-22] MEDS: MAGNESIUM OXIDE 400 MG TAB PO (13:39)
== END 2017-08-22 14:25 | disposition home or self-care (01) | DRG 871 ==
LOC: E/R 08:33 → PP2 08-17 19:18 → MS4 12:43
DX: A41.9 Sepsis, unspecified organism (principal); J18.9 Pneumonia, unspecified organism; E43 Unspecified severe protein-calorie malnutrition; C92.01 Acute myeloblastic leukemia, in remission; Z94.84 Stem cells transplant status; Z68.1 Body mass index [BMI] 19.9 or less, adult; N39.0 Urinary tract infection, site not specified; E11.65 Type 2 diabetes mellitus with hyperglycemia; K52.9 Noninfective gastroenteritis and colitis, unspecified; E86.0 Dehydration; G89.29 Other chronic pain; R11.2 Nausea with vomiting, unspecified; R60.0 Localized edema; Z79.4 Long term (current) use of insulin
CPT/HCPCS: 36415; 71045; 74176; 74177; 80048; 80053; 80069; 81001; 82010; 82962; 83605; 83690; 83735; 84100; 85025; 87040; 87075; 87086; 96361; 96365; 96366; 96372; 96375; 96376; 99285-25

== ENCOUNTER 2018-03-13 08:29 | Emergency (ER) | payer OTHER ==
[2018-03-13 09:43] LABS: ADD MAN DIFF? NO
[2018-03-13 09:45] LABS: BASOPHILS % 0.2 % (0.0-2.0); EOSINOPHILS # 0.4 10^3/ul (0.0-0.5); EOSINOPHILS % 3.3 % (0.0-7.0); HEMATOCRIT 32.5 % (42.0-52.0); HEMOGLOBIN 10.4 g/dl (14.0-18.0); LYMPHOCYTES # 2.1 10^3/ul (0.8-2.9); LYMPHOCYTES % 17.1 % (15.0-51.0); MEAN CORPUSCULAR HEMOGLOBIN 30.6 pg (29.0-33.0); MEAN CORPUSCULAR VOLUME 95.6 fl (82.0-101.0); MEAN PLATELET VOLUME 10.6 fl (7.4-10.4); MONOCYTE # 0.6 10^3/ul (0.3-0.9); MONOCYTES % 5.2 % (0.0-11.0); NEUTROPHIL # 8.9 10^3/ul (1.6-7.5); NEUTROPHILS % 73.9 % (39.0-77.0); PLATELET COUNT 167 10^3/UL (140-415); RED CELL DISTRIBUTION WIDTH 13.2 % (11.5-14.5)
[2018-03-13] MEDS: HYDROmorphONE 1 MG/ML SYG IV ×3 (09:49→13:53)
[2018-03-13] MEDS: ONDANSETRON 4 MG INJ IV ×2 (09:49→13:53)
[2018-03-13] MEDS: SODIUM CHLORIDE 0.9% 1L BAG IV* (09:53)
[2018-03-13 10:02] LABS: ALANINE AMINOTRANSFERASE 45 IU/L (13-69); ALBUMIN 4.6 g/dl (3.3-4.9); ALBUMIN/GLOBULIN RATIO 1.76; ALKALINE PHOSPHATASE 81 IU/L (42-121); AMYLASE 71 U/L (11-123); ANION GAP 9 (5-13); ASPARTATE AMINO TRANSFERASE 34 IU/L (15-46); BILIRUBIN,INDIRECT 0.2 mg/dl (0-1.1); BILIRUBIN,TOTAL 0.2 mg/dl (0.2-1.3); BLOOD UREA NITROGEN 32 mg/dl (7-20); CALCIUM 9.7 mg/dl (8.4-10.2); CARBON DIOXIDE 22 mmol/L (21-31); CHLORIDE 110 mmol/L (97-110); CREATININE 0.96 mg/dl (0.61-1.24); Estimated GFR > 60 mL/min (>60); GLUCOSE 109 mg/dl (70-220); LIPASE 61 U/L (23-300); SODIUM 141 mmol/L (135-144); TOTAL PROTEIN 7.2 g/dl (6.1-8.1)
[2018-03-13 10:05] LABS: INR 0.94; POTASSIUM 5.6 mmol/L (3.5-5.1); PROTIME 12.7 Sec (11.9-14.9)
[2018-03-13 10:06] LABS: PARTIAL THROMBOPLASTIN TIME 32.6 Sec (23.0-35.0)
[2018-03-13 10:14] LABS: TROPONIN-I < 0.012 ng/ml (0.000-0.120)
[2018-03-13] MEDS: PIPER-TAZO 3.375 GM IV (PMX) 100 ML IVPB (11:10)
== END 2018-03-13 14:32 | disposition home or self-care (01) ==
LOC: FTE 08:29 → E/R 14:32
DX: J02.0 Streptococcal pharyngitis (principal); E11.9 Type 2 diabetes mellitus without complications; Z85.6 Personal history of leukemia; Z79.4 Long term (current) use of insulin
CPT/HCPCS: 36415; 80053; 82150; 83605; 83690; 84484; 85025; 85610; 85730; 87040; 87880; 93005; 96374; 96375; 96376; 99284-25

== ENCOUNTER 2018-05-28 09:35 | Emergency (ER) | payer OTHER ==
[2018-05-28] MEDS: IBUPROFEN 800 MG TAB PO (10:18)
== END 2018-05-28 11:41 | disposition home or self-care (01) ==
LOC: E/R 09:35
DX: J06.9 Acute upper respiratory infection, unspecified (principal); E11.9 Type 2 diabetes mellitus without complications; Z79.4 Long term (current) use of insulin; Z85.6 Personal history of leukemia
CPT/HCPCS: 71045; 87400; 99284-25

== ENCOUNTER 2018-06-26 09:57 | Emergency (ER) | payer OTHER ==
[2018-06-26] MEDS: HYDROCODONE/APAP (5/325) TAB PO (11:08)
[2018-06-26 11:17] LABS: ADD MAN DIFF? NO
[2018-06-26 11:18] LABS: BASOPHILS % 0.3 % (0.0-2.0); EOSINOPHILS # 0.5 10^3/ul (0.0-0.5); EOSINOPHILS % 5.2 % (0.0-7.0); HEMATOCRIT 28.9 % (42.0-52.0); HEMOGLOBIN 9.3 g/dl (14.0-18.0); LYMPHOCYTES # 1.8 10^3/ul (0.8-2.9); LYMPHOCYTES % 19.4 % (15.0-51.0); MEAN CORPUSCULAR HEMOGLOBIN 31.1 pg (29.0-33.0); MEAN CORPUSCULAR HGB CONC 32.2 g/dl (32.0-37.0); MEAN CORPUSCULAR VOLUME 96.7 fl (82.0-101.0); MEAN PLATELET VOLUME 9.8 fl (7.4-10.4); MONOCYTE # 0.6 10^3/ul (0.3-0.9); MONOCYTES % 6.5 % (0.0-11.0); NEUTROPHIL # 6.2 10^3/ul (1.6-7.5); NEUTROPHILS % 68.3 % (39.0-77.0); PLATELET COUNT 194 10^3/UL (140-415); RED BLOOD COUNT 2.99 10^6/ul (4.70-6.10); RED CELL DISTRIBUTION WIDTH 12.6 % (11.5-14.5)
[2018-06-26 12:41] LABS: ADD UMIC YES; UR ASCORBIC ACID NEGATIVE (NEGATIVE); UR BACTERIA MANY /HPF (NONE SEEN); UR BILIRUBIN (Dip) NEGATIVE (NEGATIVE); UR BLOOD (Dip) 1+ mg/dL (NEGATIVE); UR CLARITY TURBID (CLEAR); UR COLOR YELLOW (YELLOW); UR GLUCOSE (Dip) NEGATIVE (NEGATIVE); UR KETONES (Dip) NEGATIVE (NEGATIVE); UR LEUKOCYTE ESTERASE (Dip) 3+ Leu/ul (NEGATIVE); UR MUCUS FEW /HPF (NONE SEEN); UR NITRITE (Dip) NEGATIVE (NEGATIVE); UR RBC 19 /HPF (0-5); UR SPECIFIC GRAVITY (Dip) 1.012 (1.003-1.030); UR TOTAL PROTEIN (Dip) 2+ mg/dl (NEGATIVE); UR UROBILINOGEN (Dip) NEGATIVE (NEGATIVE); UR WBC > 182 /HPF (0-5)
== END 2018-06-26 13:07 | disposition home or self-care (01) ==
LOC: FTE 09:57
DX: R30.0 Dysuria (principal); E11.9 Type 2 diabetes mellitus without complications; Z79.4 Long term (current) use of insulin; Z85.6 Personal history of leukemia
CPT/HCPCS: 36415; 71045; 81001; 85025; 87086; 99284-25

== ENCOUNTER 2018-12-08 10:15 | Emergency (ER) | payer OTHER ==
[2018-12-08 11:44] LABS: ADD MAN DIFF? NO
[2018-12-08 11:46] LABS: BASOPHILS % 0.2 % (0.0-2.0); EOSINOPHILS # 0.2 10^3/ul (0.0-0.5); EOSINOPHILS % 2.5 % (0.0-7.0); LYMPHOCYTES % 33.1 % (15.0-51.0); MEAN CORPUSCULAR HEMOGLOBIN 30.7 pg (29.0-33.0); MEAN CORPUSCULAR HGB CONC 32.1 g/dl (32.0-37.0); MEAN CORPUSCULAR VOLUME 95.6 fl (82.0-101.0); MEAN PLATELET VOLUME 10.4 fl (7.4-10.4); MONOCYTE # 0.5 10^3/ul (0.3-0.9); MONOCYTES % 7.6 % (0.0-11.0); NEUTROPHIL # 3.4 10^3/ul (1.6-7.5); NEUTROPHILS % 56.4 % (39.0-77.0); PLATELET COUNT 141 10^3/UL (140-415); RED BLOOD COUNT 2.93 10^6/ul (4.70-6.10); RED CELL DISTRIBUTION WIDTH 12.1 % (11.5-14.5)
[2018-12-08 12:03] LABS: ALANINE AMINOTRANSFERASE 61 IU/L (13-69); ALBUMIN 4.2 g/dl (3.3-4.9); ALBUMIN/GLOBULIN RATIO 1.55; ALKALINE PHOSPHATASE 74 IU/L (42-121); ANION GAP 7 (5-13); ASPARTATE AMINO TRANSFERASE 45 IU/L (15-46); BILIRUBIN,INDIRECT 0.3 mg/dl (0-1.1); BILIRUBIN,TOTAL 0.3 mg/dl (0.2-1.3); BLOOD UREA NITROGEN 34 mg/dl (7-20); CALCIUM 9.2 mg/dl (8.4-10.2); CARBON DIOXIDE 23 mmol/L (21-31); CHLORIDE 110 mmol/L (97-110); CREATININE 1.22 mg/dl (0.61-1.24); Estimated GFR > 60 mL/min (>60); GLUCOSE 70 mg/dl (70-220); POTASSIUM 5.2 mmol/L (3.5-5.1); SODIUM 140 mmol/L (135-144); TOTAL PROTEIN 6.9 g/dl (6.1-8.1)
== END 2018-12-08 12:54 | disposition home or self-care (01) ==
LOC: E/R 10:15
DX: D64.9 Anemia, unspecified (principal); E11.9 Type 2 diabetes mellitus without complications; Z79.4 Long term (current) use of insulin
CPT/HCPCS: 80053; 85025; 99283